=== PATIENT | female | born 1945 | race Caucasian/White ===

== ENCOUNTER 2022-11-10 11:05 | Observation (INO) | payer MEDICARE ==
[2022-11-10] MEDS ORDERED: SODIUM CHLORIDE 0.9% 500 ML 500 ML IV STA (11:19)
[2022-11-10] MEDS ORDERED: DILTIAZEM DRIP BOLUS FROM BAG 1 MG SOLN IV ONE ×2 (11:31→15:49)
[2022-11-10] MEDS ORDERED: DILTIAZEM 125 MG in SODIUM CHLORIDE 0.9% 100 ML IV SCH (11:45)
[2022-11-10 12:11] LABS: INR 0.9 (<1.2); Partial Thromboplastin Time 24.6 sec (22.0-30.0)
[2022-11-10 12:12] LABS: Basophils % (A) 0 %; Eosinophils # (A) 0.1 k/uL (0-0.7); Eosinophils % (A) 2 %; HCT 44.6 % (34.0-46.0); HGB 14.9 gm/dL (11.4-16.0); Lymphocytes # (A) 1.6 k/uL (1.0-4.8); Lymphocytes % (A) 19 %; MCH 30.6 pg (25.0-35.0); MCHC 33.4 g/dL (31.0-37.0); MCV 91.6 fL (80.0-100.0); Monocytes # (A) 0.8 k/uL (0-1.0); Monocytes % (A) 9 %; Neutrophils # (A) 5.7 k/uL (1.3-7.7); Neutrophils % (A) 68 %; Platelet Count 299 k/uL (150-450); RBC 4.86 m/uL (3.80-5.40); RDW 13.2 % (11.5-15.5); WBC 8.4 k/uL (3.8-10.6)
[2022-11-10 12:23] LABS: ALT 17 U/L (4-34); AST 24 U/L (14-36); African American GFR (CKD) 60 (>60 ml/min/1.73 sqM); Albumin 3.7 g/dL (3.5-5.0); Alkaline Phosphatase 113 U/L (38-126); Anion Gap 6 mmol/L; Blood Urea Nitrogen 15 mg/dL (7-17); Calcium 9.2 mg/dL (8.4-10.2); Carbon Dioxide 25 mmol/L (22-30); Chloride 109 mmol/L (98-107); Glucose 108 mg/dL (74-99); Magnesium 2.1 mg/dL (1.6-2.3); Non-African American GFR(CKD) 52 (>60 ml/min/1.73 sqM); Potassium 4.3 mmol/L (3.5-5.1); Sodium 140 mmol/L (137-145); Total Bilirubin 0.5 mg/dL (0.2-1.3); Total Protein 6.6 g/dL (6.3-8.2)
[2022-11-10] MEDS ORDERED: HEPARIN SODIUM 1,000 UN/ML (10ML VL) IV ONE (12:34)
[2022-11-10] MEDS ORDERED: HEPARIN SODIUM 1,000 UN/ML (10ML VL) IV PRN (12:34)
--- NOTE | 2022-11-10 12:38 | XR ---
EXAMINATION TYPE: XR chest 2V DATE OF EXAM: 11/10/2022 COMPARISON: NONE TECHNIQUE: PA and lateral views submitted. HISTORY: Tachycardia FINDINGS: There is bibasilar consolidation. Hyperinflation suggests COPD. Diffuse AC joint arthropathy. Atheros clerotic change aorta. No overt failure. IMPRESSION: 1. Bibasilar atelectasis or early infiltrate correlate clinically.
[2022-11-10] MEDS ORDERED: HEPARIN SOD,PORK IN 0.45% NACL 25,000 UNIT in 0.45% NACL 1 250ML.BAG IV SCH (12:45)
--- NOTE | 2022-11-10 13:44 | CT ---
EXAMINATION TYPE: CT chest angio for PE CT DLP: 413.1 mGycm, Automated exposure control for dose reduction was used. DATE OF EXAM: 11/10/2022 1:26 PM COMPARISON: Chest radiograph from same day. CLINICAL INDICATION:Female, 77 years old with history of sob, elevated D-dimer; SOB, elevated D dimer TECHNIQUE/CONTRAST: CTA scan of the thorax is performed with IV Contrast, patient injected with 100 mL of Isovue 370, pul monary embolism protocol. MIP images are created and reviewed [facility] FINDINGS: Pulmonary Artery: There is no evidence for a filling defect within the pulmonary vasculature to sugge st acute pulmonary embolism. The pulmonary artery is of normal size. Lungs/Pleura: No evidence of focal consolidation, pleural effusion or pneumothorax. Left upper lobe s omewhat subsolid nodule measuring 15 x 7 mm. Mild emphysema changes are present. Airway: Large airways are patent. Heart: Heart is within normal limits for size. Vasculature: No evidence of aortic aneurysm. Mediastinum: No gross evidence of adenopathy. Musculoskeletal: Mild degenerative disc disease changes are present throughout the thoracolumbar spin e. Soft Tissues: Unremarkable. Lower neck: No significant findings. Upper Abdomen: Mild left nodular thickening of the adrenal gland likely secondary to adenomatous hype rtrophy change. IMPRESSION: 1. No evidence of pulmonary embolism. 2. Left upper lobe pulmonary nodule measuring up to 15 mm. Further evaluation with PET/CT is recommen ded. No lymphadenopathy identified. 3. Mild emphysema.
--- NOTE | 2022-11-10 14:47 | ED ---
General Adult HPI - General Chief complaint: Recheck/Abnormal Lab/Rx Stated complaint: tachycardia Time Seen by Provider: 11/10/22 11:14 Source: patient, RN notes reviewed Mode of arrival: ambulatory Limitations: no limitations - History of Present Illness Initial comments: This a 77-year-old female presents emergency Department from urgent care for evaluation abnormal EKG. Patient states she's been having a sore throat and cough she is unsure when presented there. Patient's found to be tachycardic and an EKG showing a normal. Patient was sent here for further evaluation patient has no history. Hi no story of A. fib. Patient denies any significant palpitations or feeling lightheaded no chest pain. Denies any nausea vomiting diarrhea constipation. - Related Data Allergies Allergy/AdvReac Type Severity Reaction Status Date / Time No Known Allergies Allergy Verified 11/10/22 11:10 Review of Systems ROS Statement: Those systems with pertinent positive or pertinent negative responses have been documented in the HPI. ROS Other: All systems not noted in ROS Statement are negative. Past Medical History Past Medical History: Hyperlipidemia, Hypertension History of Any Multi-Drug Resistant Organisms: None Reported Past Surgical History: No Surgical Hx Reported Past Psychological History: No Psychological Hx Reported Smoking Status: Never smoker Past Alcohol Use History: Occasional Past Drug Use History: None Reported General Exam Limitations: no limitations General appearance: alert, in no apparent distress Head exam: Present: atraumatic, normocephalic, normal inspection Eye exam: Present: normal appearance, PERRL, EOMI. Absent: scleral icterus, conjunctival injection, periorbital swelling ENT exam: Present: normal exam, mucous membranes moist Neck exam: Present: normal inspection. Absent: tenderness, meningismus, lymphadenopathy Respiratory exam: Present: normal lung sounds bilaterally. Absent: respiratory distress, wheezes, rales, rhonchi, stridor Cardiovascular Exam: Present: tachycardia, irregular rhythm, normal heart sounds. Absent: regular rate, normal rhythm, systolic murmur, diastolic murmur, rubs, gallop, clicks GI/Abdominal exam: Present: soft, normal bowel sounds. Absent: distended, tenderness, guarding, rebound, rigid Course Vital Signs 11/10/22 11/10/22 11/10/22 11:07 11:50 13:30 Temperature 98.5 F Pulse Rate 132 H 131 H 130 H Respiratory 20 18 18 Rate Blood Pressure 114/75 129/90 137/99 O2 Sat by Pulse 99 96 98 Oximetry 11/10/22 14:26 Temperature Pulse Rate 130 H Respiratory 18 Rate Blood Pressure 150/99 O2 Sat by Pulse 98 Oximetry EKG Findings - EKG Comments: EKG Findings:: EKG performed at 11:26 atrial flutter RVR rate of 133 QRS 80 QT/[id number] - EKG Results: EKG: interpreted by YADIRA Medical Decision Making - Medical Decision Making Was pt. sent in by a medical professional or institution (, PA, CHANGE CONTROL SPECIALIST, urgent care, hospital, or retirement...) When possible be specific @ -Urgent care Did you speak to anyone other than the patient for history (EMS, parent, family, police, friend...)? What history was obtained from this source @ -No Did you review nursing and triage notes (agree or disagree)? Why? @ -I reviewed and agree with nursing and triage notes Were old charts reviewed (outside hosp., previous admission, EMS record, old EKG, old radiological studies, urgent care reports/EKG's, retirement records)? Report findings @ -No old charts were reviewed Differential Diagnosis (chest pain, altered mental status, abdominal pain women, abdominal pain men, vaginal bleeding, weakness, fever, dyspnea, syncope, headac he, dizziness, GI bleed, back pain, seizure, CVA, palpatations, mental health, musculoskeletal)? @ -nDifferential Palpitations Ventricular arrhythmias, atrial arrhythmias, myocardial infarction, anemia, thyrotoxicosis, electrolyte imbalance, hypokalemia, pulmonary embolism, pulm onary disease, drugs, alcohol, anxiety, stress.... This is not meant to be an all-inclusive list.able EKG interpreted by me (3pts min.). @ -Chest x-ray shows no acute car Department process X-rays interpreted by me (1pt min.). @ -None done CT interpreted by me (1pt min.). @ -CT shows no evidence of PE though shows evidence of lung nodule U/S interpreted by me (1pt. min.). @ -None done What testing was considered but not performed or refused? (CT, X-rays, U/S, labs)? Why? @ -None What meds were considered but not given or refused? Why? @ -None Did you discuss the management of the patient with other professionals (professionals i.e. DrScar, PA, CHANGE CONTROL SPECIALIST, lab, RT, psych nurse, hospital social worker, blender helper, teacher, customs and immigration officer, case maker)? Give summary @ -[Dr. Felix for admission with cardiology consult Was smoking cessation discussed for >3mins.? @ -No Was critical care preformed (if so, how long)? @ -35 mins Were there social determinants of health that impacted care today? How? (Homelessness, low income, unemployed, alcoholism, drug addiction, transportation, low edu. Level, literacy, decrease access to med. care, retirement, rehab)? @ -No Was there de-escalation of care discussed even if they declined (Discuss DNR or withdrawal of care, Hospice)? DNR status @ -No What co-morbidities impacted this encounter? (DM, HTN, Smoking, COPD, CAD, Cancer, CVA, ARF, Chemo, Hep., AIDS, mental health diagnosis, sleep apnea, morbid obesity)? @ -None Was patient admitted / discharged? Hospital course, mention meds given and route , prescriptions, significant lab abnormalities, going to OR and other pertinent info. @ -Admitted patient's found to be in atrial flutter with RVR patient started on Cardizem, heparin. Patient will have cardiology evaluation. Patient did have CT showing evidence of lung nodule this will be followed up Undiagnosed new problem with uncertain prognosis? @ -No Drug Therapy requiring intensive monitoring for toxicity (Heparin, Nitro, Insulin, Cardizem)? @ -Heparin, Cardizem Were any procedures done? @ -No Diagnosis/symptom? @ -Atrial flutter RVR Acute, or Chronic, or Acute on Chronic? @ -Acute Uncomplicated (without systemic symptoms) or Complicated (systemic symptoms)? @ -complicated Side effects of treatment? @ -No Exacerbation, Progression, or Severe Exacerbation? @ -No Poses a threat to life or bodily function? How? (Chest pain, [place], [place], pneumonia, PE, COPD, DKA, ARF, appy, cholecystitis, CVA, Diverticulitis, Homicidal, Suicidal, threat to staff... and all critical care pts) @ -yes patient has cardiac arrhythmia may lead to cardiac arrest. - Lab Data Result diagrams: 11/10/22 11:42 11/10/22 11:42 Lab Results 11/10/22 11/10/22 11/10/22 Range/Units 11:42 11:42 11:42 WBC 8.4 (3.8-10.6) k/uL RBC 4.86 (3.80-5.40) m/uL Hgb 14.9 (11.4-16.0) gm/dL Hct 44.6 (34.0-46.0) % MCV 91.6 (80.0-100.0) fL MCH 30.6 (25.0-35.0) pg MCHC 33.4 (31.0-37.0) g/dL RDW 13.2 (11.5-15.5) % Plt Count 299 (150-450) k/uL MPV 8.0 Neutrophils % 68 % Lymphocytes % 19 % Monocytes % 9 % Eosinophils % 2 % Basophils % 0 % Neutrophils # 5.7 (1.3-7.7) k/uL Lymphocytes # 1.6 (1.0-4.8) k/uL Monocytes # 0.8 (0-1.0) k/uL Eosinophils # 0.1 (0-0.7) k/uL Basophils # 0.0 (0-0.2) k/uL PT 10.0 (9.0-12.0) sec INR 0.9 (<1.2) APTT 24.6 (22.0-30.0) sec D-Dimer 1.41 H (<0.60) mg/L FEU Sodium 140 (137-145) mmol/L Potassium 4.3 (3.5-5.1) mmol/L Chloride 109 H (98-107) mmol/L Carbon Dioxide 25 (22-30) mmol/L Anion Gap 6 mmol/L BUN 15 (7-17) mg/dL Creatinine 1.05 H (0.52-1.04) mg/dL Est GFR (CKD-EPI)AfAm 60 (>60 ml/min/1.73 sqM) Est GFR (CKD-EPI)NonAf 52 (>60 ml/min/1.73 sqM) Glucose 108 H (74-99) mg/dL Calcium 9.2 (8.4-10.2) mg/dL Magnesium 2.1 (1.6-2.3) mg/dL Total Bilirubin 0.5 (0.2-1.3) mg/dL AST 24 (14-36) U/L ALT 17 (4-34) U/L Alkaline Phosphatase 113 (38-126) U/L Troponin I (0.000-0.034) ng/mL NT-Pro-B Natriuret Pep pg/mL Total Protein 6.6 (6.3-8.2) g/dL Albumin 3.7 (3.5-5.0) g/dL TSH 2.600 (0.465-4.680) mIU/L 11/10/22 11/10/22 Range/Units 11:42 11:42 WBC (3.8-10.6) k/uL RBC (3.80-5.40) m/uL Hgb (11.4-16.0) gm/dL Hct (34.0-46.0) % MCV (80.0-100.0) fL MCH (25.0-35.0) pg MCHC (31.0-37.0) g/dL RDW (11.5-15.5) % Plt Count (150-450) k/uL MPV Neutrophils % % Lymphocytes % % Monocytes % % Eosinophils % % Basophils % % Neutrophils # (1.3-7.7) k/uL Lymphocytes # (1.0-4.8) k/uL Monocytes # (0-1.0) k/uL Eosinophils # (0-0.7) k/uL Basophils # (0-0.2) k/uL PT (9.0-12.0) sec INR (<1.2) APTT (22.0-30.0) sec D-Dimer (<0.60) mg/L FEU Sodium (137-145) mmol/L Potassium (3.5-5.1) mmol/L Chloride (98-107) mmol/L Carbon Dioxide (22-30) mmol/L Anion Gap mmol/L BUN (7-17) mg/dL Creatinine (0.52-1.04) mg/dL Est GFR (CKD-EPI)AfAm (>60 ml/min/1.73 sqM) Est GFR (CKD-EPI)NonAf (>60 ml/min/1.73 sqM) Glucose (74-99) mg/dL Calcium (8.4-10.2) mg/dL Magnesium (1.6-2.3) mg/dL Total Bilirubin (0.2-1.3) mg/dL AST (14-36) U/L ALT (4-34) U/L Alkaline Phosphatase (38-126) U/L Troponin I <0.012 (0.000-0.034) ng/mL NT-Pro-B Natriuret Pep 1750 pg/mL Total Protein (6.3-8.2) g/dL Albumin (3.5-5.0) g/dL TSH (0.465-4.680) mIU/L Critical Care Time Critical Care Time: Yes Total Critical Care Time: 35 Disposition Clinical Impression: Atrial flutter with rapid ventricular response, Lung nodule Disposition: ADMITTED IP TO THIS HOSP Condition: Poor Referrals: Brooklynn Cid DO [Primary Care Provider] - 1-2 days Time of Disposition: 13:41
[2022-11-10] MEDS: METOPROLOL TARTRATE 25 MG TAB PO SCH ×3 (17:25→20:44)
--- NOTE | 2022-11-10 17:29 | P.CRDCN ---
History of Present Illness Consult date: 11/10/22 History of present illness: History of Present Illness: The patient is a 77-year-old female with a history of hypertension, hyperlipidemia and no prior cardiac history, status post right carotid endarterectomy who has been complaining of a cough and a sore throat for over a week. She was treated with a course of steroids but because of the persistent symptoms she was seen by her primary care physician and was noted to be tachycardic with arrhythmia. The patient does not feel any palpitations. She denies any change in her breathing area she denies any dizziness or syncope. She has no chest discomfort, PND, orthopnea or peripheral edema. She is active physically without difficulties. Her EKG showed atrial flutter, typical 2 to one conduction and nonspecific ST-T wave changes. Her troponin was normal and her potassium was 4.3. She has no prior documented history of arrhythmia. Medications: Crestor 10 mg daily, aspirin once a day, amlodipine valsartan 51 60 mg daily Review of Systems: Respiratory: She had the recent cough but no wheezing and no significant dyspnea GI: No nausea or vomiting . No history of peptic ulcer disease. No recent GI bleed. : No hematuria or dysuria. Nervous System: No stroke or seizure. Physical Examination: 77-year-old female, alert oriented no apparent distress,Blood pressure 120/70, Heart rate 105 Head: Normocephalic. Eyes: Sclerae nonicteric. Neck: Good carotid upstroke, no bruit, no jugular venous distention. Right carotid endarterectomy scar noted Lungs: Clear to auscultation. Heart: Irregular rate and rhythm, S1-S2, no S3, no rub. No murmur. Abdomen: Soft nontender, positive bowel sounds no organomegaly. Extremities: No edema, intact distal pulses. Labs: Potassium 4.3, BUN 15, creatinine 1.05, hemoglobin 14.9. Troponin less than 0.0 0.2. NT proBNP 1750. TSH 2.6. Computed tomography scan of the chest with left upper lobe nodule EKG: Atrial flutter with 2 to one conduction Impression: 1. Atrial flutter with rapid ventricular rate, unknown duration, score of 4 2. History of hypertension 3. History of hyperlipidemia 4. Pulmonary nodule 5. Recent symptoms suggestive of bronchitis 6. Carotid disease status post right carotid endarterectomy Plan: 1. Add beta radha 2. Continue IV Cardizem for now 3. Changed to oral anticoagulation 4. Obtain an echocardiogram with Doppler 5. If heart rate is controlled and the patient is stable continue anticoagulation for 3-4 weeks prior to cardioversion otherwise proceed with MIGUEL cardioversion sooner 6. Depending on the results of the testing further recommendations will be made 7. Thank you for this consult we will follow with you Past Medical History Past Medical History: Hyperlipidemia, Hypertension History of Any Multi-Drug Resistant Organisms: None Reported Past Surgical History: No Surgical Hx Reported Past Psychological History: No Psychological Hx Reported Smoking Status: Never smoker Past Alcohol Use History: Occasional Past Drug Use History: None Reported Medications and Allergies Home Medications Medication Instructions Recorded Confirmed Type Amlodipine Besylate/Valsartan 1 tab PO DAILY 11/10/22 11/10/22 History [Amlodipine-Valsartan 5-160 mg] Aspirin 81 mg PO DAILY 11/10/22 11/10/22 History Cholecalciferol [Vitamin D3 (25 25 mcg PO DAILY 11/10/22 11/10/22 History Mcg = 1000 Iu)] Rosuvastatin [Crestor] 10 mg PO DAILY 11/10/22 11/10/22 History Allergies Allergy/AdvReac Type Severity Reaction Status Date / Time No Known Allergies Allergy Verified 11/10/22 15:47 Physical Exam Vitals: Vital Signs Temp Pulse Resp BP Pulse Ox 11/10/22 16:09 135 H 18 127/77 98 11/10/22 15:13 128 H 18 154/101 98 11/10/22 14:26 130 H 18 150/99 98 11/10/22 13:30 130 H 18 137/99 98 11/10/22 11:50 131 H 18 129/90 96 11/10/22 11:07 98.5 F 132 H 20 114/75 99 Intake and Output 11/10/22 11/10/22 11/10/22 06:59 14:59 22:59 Intake Total . Balance Intake: Intake, IV Titration . Amount Diltiazem 125 mg In . Sodium Chloride 0.9% 100 ml @ 5 MG/HR 5 mls/hr IV .Q24H [facility] Rx#:[id number] Other: Weight 84.822 kg Results 11/10/22 11:42 11/10/22 11:42 Cardiac Enzymes 11/10/22 11/10/22 11/10/22 Range/Units 11:42 11:42 15:30 AST 24 (14-36) U/L Troponin I <0.012 <0.012 (0.000-0.034) ng/mL Coagulation 11/10/22 Range/Units 11:42 PT 10.0 (9.0-12.0) sec APTT 24.6 (22.0-30.0) sec CBC 11/10/22 Range/Units 11:42 WBC 8.4 (3.8-10.6) k/uL RBC 4.86 (3.80-5.40) m/uL Hgb 14.9 (11.4-16.0) gm/dL Hct 44.6 (34.0-46.0) % Plt Count 299 (150-450) k/uL Comprehensive Metabolic Panel 11/10/22 Range/Units 11:42 Sodium 140 (137-145) mmol/L Potassium 4.3 (3.5-5.1) mmol/L Chloride 109 H (98-107) mmol/L Carbon Dioxide 25 (22-30) mmol/L BUN 15 (7-17) mg/dL Creatinine 1.05 H (0.52-1.04) mg/dL Glucose 108 H (74-99) mg/dL Calcium 9.2 (8.4-10.2) mg/dL AST 24 (14-36) U/L ALT 17 (4-34) U/L Alkaline Phosphatase 113 (38-126) U/L Total Protein 6.6 (6.3-8.2) g/dL Albumin 3.7 (3.5-5.0) g/dL Current Medications Generic Name Dose Route Start Last Admin Trade Name Freq PRN Reason Stop Dose Admin Atorvastatin Calcium 40 mg 11/11/22 09:00 Atorvastatin 40 Mg Tab PO DAILY BRITTANEY Heparin Sodium (Porcine) 0 unit 11/10/22 12:34 Heparin Sodium 1,000 Un/Ml (10ml Vl) IV PER PROTOCOL PRN Low PTT Protocol Diltiazem HCl 125 mg/ Sodium 125 mls @ 5 mls/hr 11/10/22 11:45 11/10/22 16:11 Chloride IV 15 mg/hr .Q24H BRITTANEY 15 mls/hr Infusion 5 MG/HR Heparin Sodium/Sodium Chloride 250 mls @ 10.009 mls/hr 11/10/22 12:45 11/10/22 13:35 25,000 unit/ Sodium Chloride IV 11.8 units/kg/hr .Q24H BRITTANEY 10.009 mls/hr Administration Protocol 11.8 UNITS/KG/HR Metoprolol Tartrate 25 mg 11/10/22 16:06 Metoprolol Tartrate 25 Mg Tab PO BID BRITTANEY Intake and Output 11/10/22 11/10/22 11/10/22 06:59 14:59 22:59 Intake Total 12.7 17.167 Balance 12.7 17.167 Intake: Intake, IV Titration 12.7 17.167 Amount Diltiazem 125 mg In 12.7 17.167 Sodium Chloride 0.9% 100 ml @ 5 MG/HR 5 mls/hr IV .Q24H [facility] Rx#:[id number] Other: Weight 84.822 kg Patient Weight 11/11/22 06:59 Weight 84.822 kg 11/10/22 11:42 11/10/22 11:42
--- NOTE | 2022-11-10 19:10 | P.CNPUL ---
History of Present Illness Consult date: 11/10/22 Chief complaint: Pulmonary nodule History of present illness: 77-year-old. Patient presented emergency department referred from an urgent care because of an abnormal EKG. The patient was reporting some sore throat and cough. She was found to be tachycardic and her EKG showed atrial flutter with rapid ventricle response. Based on that, the patient was started on Cardizem drip at 5 mg an hour and she was also started on IV heparin. Computed tomography scan of the chest was also done that showed no evidence of any pulmonary embolism. There is a 15 x 7 mm vague some solid nodule in the left upper lobe. There is also background emphysema. No mediastinal lymphadenopathy. The labs showed edematous count of 8.4, hemoglobin is 14 and a platelet count of 299. Normal coagulation profile. BUN is at 50 with a creatinine of 1 and a sodium level is at 140, proBNP level is 1750. Review of Systems Constitutional: Reports as per HPI Eyes: denies as per HPI, denies blurred vision, denies bulging eye, denies decreased vision, denies diplopia, denies discharge, denies dry eye, denies irritation, denies itching, denies pain, denies photophobia, denies loss of peripheral vision, denies loss of vision, denies tunnel vision/blind spots Ears: deny: decreased hearing, ear discharge, earache, tinnitus Ears, nose, mouth and throat: Reports as per HPI Breasts: absent: as per HPI, change in shape, gynecomastia, masses, nipple discharge, pain, skin changes, swelling Cardiovascular: Reports as per HPI Respiratory: Reports cough Gastrointestinal: Reports as per HPI Genitourinary: Reports as per HPI Musculoskeletal: Reports as per HPI Musculoskeletal: absent: ankle pain, ankle stiffness, ankle swelling Integumentary: Reports as per HPI Neurological: Reports as per HPI Psychiatric: Reports as per HPI Endocrine: Reports as per HPI Hematologic/Lymphatic: Reports as per HPI Allergic/Immunologic: Reports as per HPI Past Medical History Past Medical History: Hyperlipidemia, Hypertension Additional Past Medical History / Comment(s): carotid artery disease History of Any Multi-Drug Resistant Organisms: None Reported Past Surgical History: No Surgical Hx Reported Past Psychological History: No Psychological Hx Reported Smoking Status: Former smoker Past Alcohol Use History: Occasional Past Drug Use History: None Reported Medications and Allergies Home Medications Medication Instructions Recorded Confirmed Type Amlodipine Besylate/Valsartan 1 tab PO DAILY 11/10/22 11/10/22 History [Amlodipine-Valsartan 5-160 mg] Aspirin 81 mg PO DAILY 11/10/22 11/10/22 History Cholecalciferol [Vitamin D3 (25 25 mcg PO DAILY 11/10/22 11/10/22 History Mcg = 1000 Iu)] Rosuvastatin [Crestor] 10 mg PO DAILY 11/10/22 11/10/22 History Allergies Allergy/AdvReac Type Severity Reaction Status Date / Time No Known Allergies Allergy Verified 11/10/22 15:47 Physical Exam Vitals: Vital Signs Temp Pulse Resp BP Pulse Ox 11/10/22 15:13 128 H 18 154/101 98 11/10/22 14:26 130 H 18 150/99 98 11/10/22 13:30 130 H 18 137/99 98 11/10/22 11:50 131 H 18 129/90 96 11/10/22 11:07 98.5 F 132 H 20 114/75 99 Intake and Output 11/10/22 11/10/22 11/10/22 06:59 14:59 22:59 Intake Total 12.917 Balance 12.917 Intake: Intake, IV Titration 12.917 Amount Diltiazem 125 mg In 12.917 Sodium Chloride 0.9% 100 ml @ 5 MG/HR 5 mls/hr IV .Q24H [facility] Rx#:[id number] Other: Weight 84.822 kg General appearance: alert, in no apparent distress, cachectic, the patient is currently on room air oxygen with a pulse ox ranging 90-95%, afebrile Head exam: Present: atraumatic, normocephalic, normal inspection Eye exam: Present: normal appearance, PERRL, EOMI. Absent: scleral icterus, conjunctival injection, periorbital swelling ENT exam: Present: normal exam, normal oropharynx, mucous membranes moist Neck exam: Present: normal inspection, full ROM. Absent: tenderness, meningismus, lymphadenopathy Respiratory exam: Present: respiratory distress, wheezes. Absent: normal lung sounds bilaterally, rales, rhonchi, stridor Cardiovascular Exam: Present: Irregular consistent with atrial flutter, tachycardic, normal heart sounds. Absent: systolic murmur, diastolic murmur, rubs, gallop, clicks GI/Abdominal exam: Present: soft, tenderness, normal bowel sounds. Absent: distended, guarding, rebound, rigid Neurological exam: Present: alert, oriented X3 Examination of the skin revealed no evidence of significant rashes, suspicious appearing nevi or other concerning lesions. Neurologically, the patient is awake and alert and the patient does not have any focal neurological deficit. Cranial nerves are essentially intact. Results - Laboratory Findings CBC and BMP: 11/10/22 11:42 11/10/22 11:42 PT/INR, D-dimer PT 10.0 sec (9.0-12.0) 11/10/22 11:42 INR 0.9 (<1.2) 11/10/22 11:42 D-Dimer 1.41 mg/L FEU (<0.60) H 11/10/22 11:42 Abnormal lab findings: Abnormal Labs 11/10/22 11/10/22 11:42 11:42 D-Dimer 1.41 H Chloride 109 H Creatinine 1.05 H Glucose 108 H - Diagnostic Findings Chest x-ray: image reviewed Assessment and Plan Plan: Pulmonary nodule, left upper lobe 15 x 7 millimeters in size, nonspecific, possibility of malignancy cannot be completely ruled out and this needs outpatient follow-up. COPD, mild, asymptomatic, along with remote history of smoking A flutter with RVR, , currently on Cardizem drip and the patient is also on anticoagulation Hypertension Hyperlipidemia Plan Reviewed the CAT scan of the chest and the findings of a left upper lobe pulmonary nodule is quite nonspecific We'll recommend outpatient workup including an outpatient PET scan to assess the metabolic activity of the pulmonary nodule and the site of biopsy is needed Management of atrial flutter per cardiology. The patient is on a Cardizem drip and anticoagulation. Beta blockers will be started Echocardiogram We'll continue to follow
[2022-11-10] MEDS: APIXABAN 5 MG TAB PO SCH (20:40)
[2022-11-10] MEDS ORDERED: BENZOCAINE/MENTHOL LOZENG 1 EACH LOZENGE MUCOUS MEM PRN (21:21)
--- NOTE | 2022-11-10 21:54 | HP ---
HISTORY AND PHYSICAL CHIEF COMPLAINT: Tachycardia. HISTORY OF PRESENT ILLNESS: This is a 77-year-old woman with a past medical history of hypertension, hyperlipidemia, being followed by Dr. Cid. She was taken to the ER, went to the Urgent Care with sore throat and cough. The patient was found to be in atrial fibrillation with fast ventricular rate. The patient came to [facility]. The patient was started on Cardizem. Heart rate has been 126. There is no history of any fever, rigors, or chills at this time. PAST MEDICAL HISTORY: Hypertension, hyperlipidemia. Rest of the history and rest of the chart is also reviewed. HOME MEDICATIONS: Reviewed. MEDICATIONS: Not available. ALLERGIES: None. FAMILY HISTORY: No history of heart disease or strokes in the family. SOCIAL HISTORY: No history of smoke. Occasional alcohol. REVIEW OF SYSTEMS: Fourteen-point review is negative except as mentioned earlier. PHYSICAL EXAMINATION: VITAL SIGNS: Pulse is 130, irregular, blood pressure 115/99, respirations 18. HEENT: Conjunctivae normal. NECK: No jugular venous distention. CARDIOVASCULAR: S1, S2, irregular. RESPIRATIONS: Clear to auscultation. ABDOMEN: Soft, nontender. LEGS: No edema. NERVOUS SYSTEM: Nonfocal. SKIN: No ulcer, rash, bleeding. JOINTS: No active deforming arthropathy. LABORATORY DATA: CBC within normal limits. Other labs are noted. D-dimer is 1.41. CT angio showed left upper lobe pulmonary nodule 15 mm. ASSESSMENT: 1. Atrial fibrillation with fast ventricular rate. 2. Left upper lobe pulmonary nodule, 15 mm. 3. Hypertension. 4. Hyperlipidemia. 5. History of carotid stenosis. RECOMMENDATIONS AND DISCUSSION: This is a 77-year-old woman, who presented with multiple medical issues. At this time, I recommend to continue current management and continue symptomatic treatment. Continue with Cardizem, heparin, cardiology consultation. 2D echo with Doppler. Pulmonary consultation for pulmonary nodules. The patient also apparently had carotid stenosis previously. Recommend outpatient followup closely. Otherwise, prognosis guarded. Further recommendations to follow. See orders for further details. MMODL / IJN: [id number] /
[2022-11-11] MEDS ORDERED: DILTIAZEM 125 MG in SODIUM CHLORIDE 0.9% 100 ML IV SCH (01:45)
[2022-11-11] MEDS: APIXABAN 5 MG TAB PO SCH (08:27)
[2022-11-11] MEDS: METOPROLOL TARTRATE 25 MG TAB PO SCH (08:28)
[2022-11-11 08:29] LABS: African American GFR (CKD) 65 (>60 ml/min/1.73 sqM); Anion Gap 6 mmol/L; Blood Urea Nitrogen 16 mg/dL (7-17); Calcium 8.9 mg/dL (8.4-10.2); Carbon Dioxide 25 mmol/L (22-30); Chloride 108 mmol/L (98-107); Glucose 93 mg/dL (74-99); Non-African American GFR(CKD) 56 (>60 ml/min/1.73 sqM); Potassium 4.5 mmol/L (3.5-5.1); Sodium 139 mmol/L (137-145)
[2022-11-11 08:30] LABS: Prothrombin Time 10.4 sec (9.0-12.0)
[2022-11-11 08:56] LABS: Basophils % (A) 1 %; Eosinophils # (A) 0.2 k/uL (0-0.7); Eosinophils % (A) 2 %; HCT 42.3 % (34.0-46.0); HGB 13.8 gm/dL (11.4-16.0); Lymphocytes # (A) 1.6 k/uL (1.0-4.8); Lymphocytes % (A) 23 %; MCH 30.8 pg (25.0-35.0); MCHC 32.6 g/dL (31.0-37.0); MCV 94.4 fL (80.0-100.0); Mean Platelet Volume 7.8; Monocytes # (A) 0.6 k/uL (0-1.0); Monocytes % (A) 8 %; Neutrophils # (A) 4.6 k/uL (1.3-7.7); Neutrophils % (A) 64 %; Platelet Count 284 k/uL (150-450); RBC 4.48 m/uL (3.80-5.40); RDW 13.4 % (11.5-15.5); WBC 7.2 k/uL (3.8-10.6)
[2022-11-11] MEDS ORDERED: ATORVASTATIN 40 MG TAB PO SCH (09:00)
[2022-11-11] MEDS ORDERED: PANTOPRAZOLE 40 MG TABLET PO SCH (09:15)
[2022-11-11 10:49] VITALS: RESP 18
--- NOTE | 2022-11-11 11:46 | P.PN ---
Subjective Progress Note Date: 11/11/22 77-year-old. Patient presented emergency department referred from an urgent ca re because of an abnormal EKG. The patient was reporting some sore throat and cough. She was found to be tachycardic and her EKG showed atrial flutter with rapid ventricle response. Based on that, the patient was started on Cardizem drip at 5 mg an hour and she was also started on IV heparin. Computed tomography scan of the chest was also done that showed no evidence of any pulmonary embolism. There is a 15 x 7 mm vague some solid nodule in the left upper lobe. There is also background emphysema. No mediastinal lymphadenopathy. The labs showed edematous count of 8.4, hemoglobin is 14 and a platelet count of 299. Normal coagulation profile. BUN is at 50 with a creatinine of 1 and a sodium level is at 140, proBNP level is 1750. On today's evaluation of 11/11/2022, the patient is doing well. No specific complaints. Her current cardiac rhythm is sinus. The patient was placed on anticoagulation with Eliquis and she is going to be discharged home. Awaiting on the echocardiogram. The patient will need a follow-up with me in the office regarding the pulmonary nodule.Labs from today are all within normal limits. BUN is at 60 with a creatinine of 0.98. The white cell count at 7.2 with hemoglobin 13.8. Objective - Vital Signs Vital signs: Vital Signs Temp 97.5 F L 11/10/22 20:48 Pulse 57 L 11/11/22 10:47 Resp 18 11/11/22 10:47 BP 98/82 11/11/22 10:47 Pulse Ox 97 11/11/22 10:47 FiO2 Intake & Output 11/10/22 11/11/22 11/11/22 18:59 06:59 18:59 Intake Total 30.084 Balance 30.084 Weight 84.822 kg Intake: Intake, IV Titration 30.084 Amount Diltiazem 125 mg In 30.084 Sodium Chloride 0.9% 100 ml @ 5 MG/HR 5 mls/hr IV .Q24H [facility] Rx#:[id number] - Exam General appearance: alert, in no apparent distress, cachectic, the patient is currently on room air oxygen with a pulse ox ranging 90-95%, afebrile Head exam: Present: atraumatic, normocephalic, normal inspection Eye exam: Present: normal appearance, PERRL, EOMI. Absent: scleral icterus, conjunctival injection, periorbital swelling ENT exam: Present: normal exam, normal oropharynx, mucous membranes moist Neck exam: Present: normal inspection, full ROM. Absent: tenderness, meningismus, lymphadenopathy Respiratory exam: Present: respiratory distress, wheezes. Absent: normal lung sounds bilaterally, rales, rhonchi, stridor Cardiovascular Exam: Present: Irregular consistent with atrial flutter, tachycardic, normal heart sounds. Absent: systolic murmur, diastolic murmur, rubs, gallop, clicks GI/Abdominal exam: Present: soft, tenderness, normal bowel sounds. Absent: distended, guarding, rebound, rigid Neurological exam: Present: alert, oriented X3 Examination of the skin revealed no evidence of significant rashes, suspicious appearing nevi or other concerning lesions. Neurologically, the patient is awake and alert and the patient does not have any focal neurological deficit. Cranial nerves are essentially intact. - Labs CBC & Chem 7: 11/11/22 07:36 11/11/22 07:36 Labs: Abnormal Lab Results - Last 24 Hours (Table) 11/10/22 11/10/22 11/10/22 Range/Units 11:42 11:42 18:23 APTT 61.8 H (22.0-30.0) sec D-Dimer 1.41 H (<0.60) mg/L FEU Chloride 109 H (98-107) mmol/L Creatinine 1.05 H (0.52-1.04) mg/dL Glucose 108 H (74-99) mg/dL 11/11/22 Range/Units 07:36 APTT (22.0-30.0) sec D-Dimer (<0.60) mg/L FEU Chloride 108 H (98-107) mmol/L Creatinine (0.52-1.04) mg/dL Glucose (74-99) mg/dL Assessment and Plan Plan: Pulmonary nodule, left upper lobe 15 x 7 millimeters in size, nonspecific, possibility of malignancy cannot be completely ruled out and this needs outpatient follow-up. COPD, mild, asymptomatic, along with remote history of smoking A flutter with RVR, , currently on Cardizem drip and the patient is also on anticoagulation, converted into sinus rhythm and the patient is currently on the coagulation with Eliquis and she is also on oral metoprolol Hypertension Hyperlipidemia Plan Reviewed the CAT scan of the chest and the findings of a left upper lobe pulmonary nodule is quite nonspecific We'll recommend outpatient workup including an outpatient PET scan to assess the metabolic activity of the pulmonary nodule and the site of biopsy is needed Awaiting echocardiogram report We'll continue to follow on outpatient basis regarding the pulmonary nodule as indicated earlier.
--- NOTE | 2022-11-11 12:56 | P.PN ---
Subjective Progress Note Date: 11/11/22 PROGRESS NOTE The patient is a 77-year-old female with a history of hypertension, hyperlipidemia and no prior cardiac history, status post right carotid endarterectomy who has been complaining of a cough and a sore throat for over a week. She was treated with a course of steroids but because of the persistent symptoms she was seen by her primary care physician and was noted to be tachycardic with arrhythmia. The patient does not feel any palpitations. She denies any change in her breathing area she denies any dizziness or syncope. She has no chest discomfort, PND, orthopnea or peripheral edema. She is active physically without difficulties. Her EKG showed atrial flutter, typical 2 to one conduction and nonspecific ST-T wave changes. Her troponin was normal and her potassium was 4.3. She has no prior documented history of arrhythmia. November 11: The patient feels better today, she is back in sinus mechanism. Hemodynamically she is stable. She denies any chest discomfort, dizziness or palpitations. She continues to be on oral anticoagulation that was initiated yesterday. Her CAT scan showed left upper lobe nodule and she is scheduled for follow-up. Her echocardiogram is pending. Medications: Lipitor 40 mg daily, metoprolol 25 mg twice a day, Eliquis 5 mg twice a day PHYSICAL EXAMINATION: Blood pressure 112/60 heart rate 60 LUNGS: Clear to auscultation HEART: Regular rate and rhythm, S1, S2. No S3. No systolic murmur ABDOMEN: Soft, nontender, no organomegaly EXTREMETIES: No edema LAB: BUN 16, creatinine 0.98, hemoglobin 13.8 IMPRESSION: 1. Paroxysmal atrial flutter, back in sinus mechanism 2. History of hypertension 3. History of hyperlipidemia 4. Lung nodule, workup in progress PLAN: 1. Continue present therapy 2. Increase physical activity 3. If stable probable discharge home today 4. And follow-up as an outpatient Objective - Vital Signs Vital signs: Vital Signs Temp 97.5 F L 11/10/22 20:48 Pulse 57 L 11/11/22 10:47 Resp 18 11/11/22 10:47 BP 98/82 11/11/22 10:47 Pulse Ox 97 11/11/22 10:47 FiO2 Intake & Output 11/10/22 11/11/22 11/11/22 18:59 06:59 18:59 Intake Total 30.084 Balance 30.084 Weight 84.822 kg Intake: Intake, IV Titration 30.084 Amount Diltiazem 125 mg In 30.084 Sodium Chloride 0.9% 100 ml @ 5 MG/HR 5 mls/hr IV .Q24H [facility] Rx#:[id number] - Labs CBC & Chem 7: 11/11/22 07:36 11/11/22 07:36 Labs: Abnormal Lab Results - Last 24 Hours (Table) 11/10/22 11/11/22 Range/Units 18:23 07:36 APTT 61.8 H (22.0-30.0) sec Chloride 108 H (98-107) mmol/L
[2022-11-11 14:09] VITALS: PULSE 61
[2022-11-11 16:21] VITALS: BP 139/67; TEMP 97.2
--- NOTE | 2022-11-11 17:23 | CA ---
Transthoracic Echo Report Name: Aby Ponce Age: 77 Gender: F : 1945 Exam Date: 11/11/2022 15:38 Exam Location: [facility] Ht (in): 64 Wt (lb): 187 Ordering Physician: Elza Wills Attending/Referring Phys: Brim Welt [employer]ing Machine Operator Danni Mejia RDCS Procedure CPT: Indications: Atrial flutter, discharge pending results Cardiac Hx: Technical Quality: Fair Contrast 1: Total Dose (mL): Contrast 2: Total Dose (mL): MEASUREMENTS (Male / Female) Normal Values 2D ECHO LV Diastolic Diameter PLAX 5.0 cm 4.2 - 5.9 / 3.9 - 5.3 cm LV Systolic Diameter PLAX 3.1 cm IVS Diastolic Thickness 1.0 cm 0.6 - 1.0 / 0.6 - 0.9 cm LVPW Diastolic Thickness 0.9 cm 0.6 - 1.0 / 0.6 - 0.9 cm LV Relative Wall Thickness 0.4 RV Internal Dim ED PLAX 3.7 cm LA Volume 48.8 cm??? 18 - 58 / 22 - 52 cm??? M-MODE Aortic Root Diameter MM 3.0 cm LA Systolic Diameter MM 3.3 cm LA Ao Ratio MM 1.1 AV Cusp Separation MM 2.1 cm DOPPLER AV Peak Velocity 176.5 cm/s AV Peak Gradient 12.5 mmHg AV Mean Velocity 123.7 cm/s AV Mean Gradient 6.6 mmHg AV Velocity Time Integral 40.0 cm AI Peak Velocity 252.0 cm/s AI Peak Gradient 25.4 mmHg AI Pressure Half Time 537.4 ms LVOT Peak Velocity 120.9 cm/s LVOT Peak Gradient 5.8 mmHg LVOT Velocity Time Integral 26.5 cm MV Area PHT 4.0 cm??? Mitral E Point Velocity 103.1 cm/s Mitral A Point Velocity 87.4 cm/s Mitral E to A Ratio 1.2 MV Deceleration Time 190.8 ms MV E' Velocity 8.0 cm/s Mitral E to MV E' Ratio 12.9 TR Peak Velocity 292.2 cm/s TR Peak Gradient 34.2 mmHg Right Ventricular Systolic Press 38.3 mmHg FINDINGS Left Ventricle Normal Left ventricular size, wall thickness, systolic function with no obvious regional wall motion abnormalities. Normal Left ventricular diastolic filling pattern. Left ventricular ejection fraction is estimated at 55-60 %. Right Ventricle Moderate right ventricular dilatation. Mild pulmonary hypertension. Right Atrium Left Atrium Normal left atrial size. Mitral Valve Structurally normal mitral valve. Mild mitral annular calcification. Mild mitral regurgitation. Aortic Valve Trileaflet aortic valve. Trace aortic regurgitation. No aortic stenosis. Tricuspid Valve Structurally normal tricuspid valve. Mild tricuspid regurgitation. Pulmonic Valve Trace pulmonic regurgitation. Pericardium No pericardial effusion. Aorta Normal size aortic root and proximal ascending aorta. CONCLUSIONS Normal LV systolic function Mild mitral regurgitation Mild tricuspid regurgitation Mild pulmonary hypertension Previewed by: Dr. Calin De La Garza MD (Electronically Signed) Final Date: 11 November 2022 17:22
[2022-11-11 17:44] LABS: Chol/HDL Ratio 2.22 Ratio; LDL Cholesterol,Calculated 50.6 mg/dL (0.0-131.0)
--- NOTE | 2022-11-12 11:04 | CDI ---
Documentation Clarification Form Date: 11/12/22 From: Jolly Anderson Admit Date: 11/10/2022 02:32:00 PM Patient Name: Aby Ponce Visit Number: [id number] Discharge Date: 11/11/2022 04:18:00 PM ATTENTION: The Clinical Documentation Specialists (CDI) and [facility] Coding Staff appreciate your assistance in clarifying documentation. Please respond to the clarification below the line at the bottom and electronically sign. The CDI & [facility] Coding staff will review the response and follow-up if needed. Please note: Queries are made part of the Legal Health Record. If you have any questions, please contact the author of this message via ITS. Dr. Jerzy Plaza, Atrial Fibrillation is documented in the H&P. Additional clarification regarding the type of atrial fibrillation is requested. History/Risk Factors: emphysema, HLD, HTN Clinical Indicators: The patient was found to be inatrial fibrillationwith fast ventricular rate. EKG/telemetry: EKG performed at 11:26atrial flutterRVR rate of 133 QRS 80 QT/[id number] Treatment: Diltiazam drip, IV Heparin, Please clarify the type of atrial fibrillation, if known: [ ] Chronic [ ] Permanent [ xx ] Paroxysmal [ ] Persistent [ ] Other, please specify [ ] Unable to determine MTDD
--- NOTE | 2022-11-12 12:26 | P.DS ---
Providers Date of admission: 11/10/22 14:32 Expected date of discharge: 11/11/22 Attending physician: Jason Wells MD Consults: 11/10/22 14:52 Consult Physician Urgent Consulting Provider: Jerzy Plaza Consult Reason/Comments: Atrial flutter Do you want consulting provider notified?: Yes 11/10/22 15:38 Consult Physician Routine Consulting Provider: Zulma Lewis Consult Reason/Comments: left pul nodule Do you want consulting provider notified?: Yes Primary care physician: Brooklynn Cid [facility] Course: Final diagnosis Atrial fibrillation with fast ventricular rate Left upper lobe pulmonary nodule, 15 mm, requires outpatient follow-up and testing Hypertension history Hyperlipidemia History of carotid stenosis Obesity with a BMI of 32.1 GI prophylaxis DVT Proflex Full code Discharge disposition Patient is being discharged in a stable condition with guarded prognosis to home. Patient will follow-up with Dr. Cid in the outpatient setting upon discharge. Patient is to continue with oral anticoagulation and close outpatient follow-up with cardiology as scheduled. Total time taken is greater than 35 minutes. Hospital course This is a 77-year-old female who was recently admitted with initially being at an urgent care for sore throat with cough and some shortness of breath was found to be in atrial for ablation with RVR and brought here for further evaluation. Patient was started on Cardizem and heparin seen and evaluated by cardiology started on metoprolol along with oral eliquis and order 2-D echo. Patient has been cleared by cardiology and recommended close outpatient follow-up with Dr. Plaza this week. Patient instructed to follow-up with primary care provider as well. Please refer to cardiology note for further HPI. Currently no reports of chest pain, shortness of breath, or palpitations. Patient is afebrile. No reports of nausea or vomiting and patient is tolerating diet. Patient will be discharged home today. Physical exam: Gen: This is a 77-year-old female who is awake, alert and oriented 3, well- developed, well-nourished, obese HEENT: Head is atraumatic, normocephalic. Pupils equal, round. Sclerae is anict jorge. NECK: Supple. No JVD. No lymphadenopathy. No thyromegaly. LUNGS: Breath sounds diminished bilaterally with no wheezes or rhonchi. No intercostal retractions. HEART:S1, S2 are muffled, irregular ABDOMEN: Soft. Bowel sounds are present. No masses. No tenderness. EXTREMITIES: No pedal edema. No calf tenderness. NEUROLOGICAL: Patient is awake, alert and oriented x3. Cranial nerves 2 through 12 are grossly intact. Please refer to medication reconciliation sheet for a list of medications. The impression and plan of care has been dictated by Elza Wills, Nurse Practitioner as directed. Dr. Jah MD I have performed a history and examination and MDM of this patient, discussed the same with the dictator, and agree with the dictator's assessment and plan as written ,documented as a scribe. Based on total visit time, I have performed more than 50% of the visit. Patient Condition at Discharge: Fair Plan - Discharge Summary New Discharge Prescriptions: New Benzocaine/Menthol Lozeng [Cepacol lozenge] 1 each MUCOUS MEM Q4HR PRN lozenge PRN Reason: Sore Throat Metoprolol Tartrate [Lopressor] 25 mg PO BID #60 tab Apixaban [Eliquis] 5 mg PO BID 30 Days #60 tab Continue Cholecalciferol [Vitamin D3 (25 Mcg = 1000 Iu)] 25 mcg PO DAILY Aspirin 81 mg PO DAILY Rosuvastatin [Crestor] 10 mg PO DAILY Discontinued Amlodipine Besylate/Valsartan [Amlodipine-Valsartan 5-160 mg] 1 tab PO DAILY Discharge Medication List Aspirin 81 mg PO DAILY 11/10/22 [History] Cholecalciferol [Vitamin D3 (25 Mcg = 1000 Iu)] 25 mcg PO DAILY 11/10/22 [History] Rosuvastatin [Crestor] 10 mg PO DAILY 11/10/22 [History] Apixaban [Eliquis] 5 mg PO BID 30 Days #60 tab 11/11/22 [Rx] Benzocaine/Menthol Lozeng [Cepacol lozenge] 1 each MUCOUS MEM Q4HR PRN lozenge 11/11/22 [Rx] Metoprolol Tartrate [Lopressor] 25 mg PO BID #60 tab 11/11/22 [Rx] Follow up Appointment(s)/Referral(s): Jerzy Plaza MD [STAFF PHYSICIAN] - 1 Week Brooklynn Cid DO [Primary Care Provider] - 1-2 days Activity/Diet/Wound Care/Special Instructions: Activity Limited until follow-up Follow-up with primary care provider on discharge Follow-up with cardiology this week and follow up with echo report Continue taking medications as prescribed Follow-up outpatient with pulmonary and discuss PET schedule Discharge Disposition: HOME SELF-CARE
== END 2022-11-11 16:18 | disposition home or self-care (01) ==
LOC: EC 11:05 → 3SCARD 14:32 → INTOOBSV 14:32 → 3SCARD 18:40 → UNDODISIN 11-11 16:18
PROVIDERS: ADMIT Internal Medicine; ATTEND Internal Medicine
DX: I48.92 Unspecified atrial flutter (principal); R91.1 Solitary pulmonary nodule; M12.819 Other specific arthropathies, not elsewhere classified, unspecified shoulder; I70.0 Atherosclerosis of aorta; M51.35 Other intervertebral disc degeneration, thoracolumbar region; E66.9 Obesity, unspecified; J43.9 Emphysema, unspecified; I48.0 Paroxysmal atrial fibrillation; I27.20 Pulmonary hypertension, unspecified; I08.3 Combined rheumatic disorders of mitral, aortic and tricuspid valves; E78.5 Hyperlipidemia, unspecified; I10 Essential (primary) hypertension; Z87.891 Personal history of nicotine dependence; Z79.82 Long term (current) use of aspirin; Z79.899 Other long term (current) drug therapy; Z79.01 Long term (current) use of anticoagulants; Z68.32 Body mass index [BMI] 32.0-32.9, adult
CPT/HCPCS: 96361; 96365; 96366; 99291; 36415; 93005 ×2; 93306; 85379; 83880; 80061; 80053; 80048; 84443; 83735; 84484; 85025 ×2; 85610 ×2; 85730; 71046; 71275; G0378 ×2; J1644 ×2; Q9967; 96368